=== PATIENT | male | born 1975 | race Caucasian/White ===

== ENCOUNTER 2017-01-28 19:30 | Emergency (ER) | payer SELFPAY ==
[~2017-01-28] VITALS: Ht 200.7 cm; Wt 84.4 kg
[~2017-01-28 19:30] MED LIST: AFRIN15 M1; KEFLEX500 MG PO; NO MEDICATIONS; SUDAFED30 M1 PO; VOLTAREN50 MG PO; ZITHROMAX PO
[2017-01-28] MEDS ORDERED: SUBOXONE 8 MG-1 EAC1 (19:45)
== END 2017-01-28 21:01 | disposition home or self-care (01) ==
LOC: SED 19:30
DX: S61.212A Laceration without foreign body of right middle finger without damage to nail, initial encounter (principal); F17.210 Nicotine dependence, cigarettes, uncomplicated; W54.0XXA Bitten by dog, initial encounter; Y92.009 Unspecified place in unspecified non-institutional (private) residence as the place of occurrence of the external cause
CPT/HCPCS: 12001; 99283